=== PATIENT | male | born 1960 | race Caucasian/White ===

== ENCOUNTER 2016-10-05 12:59 | Outpatient (CLI) | payer BC, MEDICARE ==
[~2016-10-05] VITALS: Ht 188 cm; Wt 110.4 kg
[~2016-10-05 12:59] MED LIST: LORTAB 10/500 51 TAB; METHADONE10 MG PO; PERCOCET 325 MG1 TAB PO; ROBAXIN 75750 MG/TAB PO; SEE INSTRUCTIONS IT; SULFAZINE500 MG PO; WELLBUTRIN SR150 M1 PO
[2016-10-05] MEDS ORDERED: NORCO 325 MG-101 TAB PO (14:12)
[2016-10-05] MEDS ORDERED: DAZIDOX10 MG PO (14:12)
[2016-10-05] MEDS ORDERED: PRINIVIL20 MG PO (14:13)
[2016-10-05] MEDS ORDERED: SMZ/TMPDS PO (14:13)
[2016-10-05] MEDS ORDERED: ZOCOR 40MG40 MG PO (14:14)
[2016-10-05] MEDS ORDERED: RITALIN 20M20 MG/TAB PO (14:15)
[2016-10-05 14:16] VITALS: BP 125/55; PULSE 80; TEMP 98.4
== END 2016-10-05 17:06 | disposition home or self-care (01) ==
LOC: EUO 12:59
DX: Z95.828 Presence of other vascular implants and grafts (principal)
CPT/HCPCS: C1751

== ENCOUNTER → 2016-11-01 | Outpatient (REF) ==
[~2016-11-01] MED LIST changes: +DAZIDOX10 MG PO; +NORCO 325 MG-101 TAB PO; +PRINIVIL20 MG PO; +RITALIN 20M20 MG/TAB PO; +SMZ/TMPDS PO; +ZOCOR 40MG40 MG PO
== END ==
LOC: ZAIV 10-31 06:20
DX: Z02.89 Encounter for other administrative examinations (principal)